=== PATIENT | female | born 1995 | race Caucasian/White ===

== ENCOUNTER → 2023-07-27 14:19 | Outpatient (CLI) | payer OTHER, SELFPAY ==
--- NOTE | 2023-07-27 14:37 | US_ITS ---
PROCEDURE: US TRANSVAGINAL CLINICAL INDICATION: irreg. periods and possible pcos COMPARISON: No exams were available for comparison FINDINGS: Transabdominal sonographic images of the pelvis were obtained. UTERUS: 7.3 cm x 5.0 cmx 3.2 cm with a combined endometrial thickness of 6.3mm. There is a 8.1 mm by 11 mm nabothian cyst in the cervix. LEFT OVARY: 4.3 cmx2.9 cmx2.8cm with a volume of 17.9ml. The left ovary has a polycystic appearance with multiple small peripheral follicles. RIGHT OVARY: 6.3 cmx 5.6 cmx4.9 cm with a volume of 91.7ml. Within the right ovary there is a cyst measuring 5.6 cm x 4.0 cm x 5.2 cm. Both ovaries are seen and appear normal with a 5.6 cm cyst in the right ovary.. Doppler flow to both ovaries are seen. There is no fluid in the cul-de-sac. IMPRESSION: 1. Anteverted uterus normal in shape and size. 2. The left ovary is normal in shape and size and has a polycystic appearance. 3. Within the right ovary there is a 5.6 cm cyst. Suggest repeat ultrasound in 6-8 weeks. 4. No fluid in the cul-de-sac. Dictated by: Gabe Beltran MD 07/27/2023 16:16 Gabe Beltran MD in [facility] 07/27/2023 16:16
== END ==
PROVIDERS: Visit Provider Nurse Practitioner Obstetrics & Gynecology
DX: N92.6 Irregular menstruation, unspecified (principal); E28.2 Polycystic ovarian syndrome
CPT/HCPCS: 76830

== ENCOUNTER → 2023-09-29 10:45 | Outpatient (CLI) | payer OTHER, SELFPAY ==
--- NOTE | 2023-09-29 10:45 | US_ITS ---
PROCEDURE: US TRANSVAGINAL CLINICAL INDICATION: ovarian cyst COMPARISON: US US TRANSVAGINAL from 07/27/2023 FINDINGS: Transvaginal sonographic images of the pelvis were obtained. UTERUS: 8.6 cm x 4.8 cmx 3.6 cm with a combined endometrial thickness of 3.5mm. There is a persistent nabothian cyst measuring 9 mm. LEFT OVARY: 5.3cmx4.0cmx2.9cm with a volume of 32ml. There are multiple small peripheral follicles giving the ovary a polycystic appearance. RIGHT OVARY: 7.7 cmx 5.8 cmx4.4cm with a volume of 102.1ml. A right ovarian cyst continues to be present measuring 4.4 cm x 4.0 cm x 5.3 cm. Volume 79.3 mL Both ovaries are seen . Doppler flow to both ovaries are seen. There is no fluid in the cul-de-sac. IMPRESSION: 1. Anteverted uterus normal in shape and size. The endometrium is thin. 2. There continues to be a 5.3 cm simple appearing cyst in the right ovary. It currently has a volume of 79.3 mL. The cyst on her previous ultrasound done 07/27/2023 had a volume of 73.6 mL. The cyst has not appreciably changed in size. Suggest continued follow-up ultrasound in 3 months. 3. The left ovary has a polycystic appearance. 4. No fluid in the cul-de-sac. Dictated by: Gabe Beltran MD 10/02/2023 08:38 Gabe Beltran MD in [facility] 10/02/2023 08:38
== END ==
PROVIDERS: PCP Nurse Practitioner Obstetrics & Gynecology; Visit Provider Nurse Practitioner Obstetrics & Gynecology
DX: N83.209 Unspecified ovarian cyst, unspecified side (principal)
CPT/HCPCS: 76830